=== PATIENT | female | born 1950 | race Native Hawaiian/Other Pacific Islander ===

== ENCOUNTER 2017-09-28 13:43 | Emergency (ER) | payer MEDICARE, OTHER ==
[~2017-09-28] VITALS: Ht 170.2 cm; Wt 79.5 kg
[~2017-09-28 13:43] MED LIST: DIPH25 PO; HYDR25TA PO; LISI-661 PO; METO25XL PO; NITR.3 SL; RANI150T7 PO
[2017-09-28] MEDS ORDERED: ASPIRIN 325 MG TABLET PO ONE (14:30)
[2017-09-28 14:54] LABS: BASOPHILS % (AUTO) 0.6 % (0.0-2.0); EOSINOPHILS % (AUTO) 1.5 % (1.0-6.0); HEMATOCRIT 38.7 % (36-46); HEMOGLOBIN 12.9 g/dL (12.0-16.0); LYMPHOCYTES # (AUTO) 2.2 K/uL (1.0-4.8); LYMPHOCYTES % (AUTO) 25.9 % (22.0-44.0); MEAN CORPUSCULAR HEMOGLOBIN 30.3 pg (26.0-34.0); MEAN CORPUSCULAR HGB CONC 33.4 G/dL (31.0-37.0); MEAN CORPUSCULAR VOLUME 91 fL (80-100); MONOCYTES # (AUTO) 0.5 K/uL (0.1-1.0); MONOCYTES % (AUTO) 6.3 % (2.0-9.0); NEUTROPHILS # (AUTO) 5.5 K/uL (1.8-7.7); NEUTROPHILS % (AUTO) 65.7 % (40.0-70.0); PLATELET COUNT (AUTO) 240 K/uL (150-450); RED BLOOD CELL COUNT(AUTO) 4.27 MIL/uL (4.00-5.20); RED CELL DISTRIBUTION WIDTH 14.1 % (11.5-14.5)
[2017-09-28 14:55] LABS: ANION GAP 8 mmol/L (8-16); CALCIUM, TOTAL 8.8 mg/dL (8.8-10.5); CARBON DIOXIDE 27 mmol/L (22-29); CHLORIDE 107 mmol/L (98-107); CREATININE 0.82 mg/dL (0.60-1.30); GLOMERULAR FILTR. RATE CALC > 60 mL/min (>60); GLUCOSE,RANDOM 98 mg/dL (70-110); POTASSIUM 3.6 mmol/L (3.5-5.1); SODIUM SERUM 142 mmol/L (136-145); UREA NITROGEN, BLOOD 15 mg/dL (7-18)
[2017-09-28 15:00] LABS: ALANINE AMINOTRANSFERASE 16 U/L (12-78); ALBUMIN 3.6 g/dL (3.4-5.0); ALKALINE PHOSPHATASE 71 U/L (46-116); ASPARTATE AMINOTRANSFERASE 12 U/L (15-37); BILIRUBIN,TOTAL 0.4 mg/dL (0.1-1.0); LIPASE 115 U/L (73-393); TOTAL PROTEIN, SERUM 7.4 g/dL (6.4-8.2)
[2017-09-28 16:34] VITALS: BP 142/82
== END 2017-09-28 17:14 | disposition home or self-care (01) ==
LOC: EMS 13:44
DX: K80.20 Calculus of gallbladder without cholecystitis without obstruction (principal); R07.89 Other chest pain; E78.00 Pure hypercholesterolemia, unspecified; I10 Essential (primary) hypertension; F17.210 Nicotine dependence, cigarettes, uncomplicated; E66.9 Obesity, unspecified; Z68.27 Body mass index [BMI] 27.0-27.9, adult
CPT/HCPCS: 76705; 93005; 99285

== ENCOUNTER 2022-03-21 17:56 | Emergency (ER) | payer MEDICARE, MEDICAID ==
[~2022-03-21] VITALS: Ht 170.2 cm; Wt 120.5 kg
[~2022-03-21 17:56] MED LIST changes: -DIPH25 PO; -HYDR25TA PO; -LISI-661 PO; +LISI-893 PO; -NITR.3 SL; +NITR0.3T12 SL
[2022-03-21] MEDS ORDERED: LEVO25TA9 PO (18:17)
[2022-03-21] MEDS ORDERED: METO-408 PO (18:17)
[2022-03-21] MEDS ORDERED: LOSA1TAB37 PO (18:17)
[2022-03-21] MEDS ORDERED: AMLO5TAB66 PO (18:17)
[2022-03-21] MEDS ORDERED: ONDANSETRON HCL 4 MG/2 ML VIAL IM ONE (18:30)
[2022-03-21] MEDS ORDERED: MORPHINE SULFATE 4 MG/ML SYRINGE IM ONE (18:30)
[2022-03-21 19:03] LABS: BASOPHILS % (AUTO) 0.6 % (0.0-2.0); EOSINOPHILS % (AUTO) 1.5 % (1.0-6.0); HEMATOCRIT 38.5 % (36-46); HEMOGLOBIN 13.1 g/dL (12.0-16.0); LYMPHOCYTES % (AUTO) 22.7 % (22.0-44.0); MEAN CORPUSCULAR HEMOGLOBIN 30.5 pg (26.0-34.0); MEAN CORPUSCULAR HGB CONC 33.9 G/dL (31.0-37.0); MEAN CORPUSCULAR VOLUME 90 fL (80-100); MONOCYTES # (AUTO) 0.7 K/uL (0.1-1.0); NEUTROPHILS # (AUTO) 5.9 K/uL (1.8-7.7); NEUTROPHILS % (AUTO) 67.2 % (40.0-70.0); PLATELET COUNT (AUTO) 255 K/uL (150-450); RED BLOOD CELL COUNT(AUTO) 4.28 MIL/uL (4.00-5.20); RED CELL DISTRIBUTION WIDTH 13.8 % (11.5-14.5)
[2022-03-21 19:21] LABS: CALCIUM, TOTAL 8.8 mg/dL (8.8-10.5); CREATININE 0.92 mg/dL (0.60-1.30); POTASSIUM 3.6 mmol/L (3.5-5.1)
[2022-03-21 19:30] LABS: ALBUMIN 3.5 g/dL (3.4-5.0); BILIRUBIN,TOTAL 0.3 mg/dL (0.1-1.0); TOTAL PROTEIN, SERUM 7.1 g/dL (6.4-8.2)
[2022-03-21] MEDS ORDERED: TraMADol HCL 50 MG TABLET PO ONE (21:45)
[2022-03-21 21:55] VITALS: BP 173/70
[2022-03-21] MEDS ORDERED: TRAM50TA4 PO (21:56)
== END 2022-03-21 21:53 | disposition home or self-care (01) ==
LOC: EMS 18:04
DX: S00.93XA Contusion of unspecified part of head, initial encounter (principal); S80.02XA Contusion of left knee, initial encounter; S80.01XA Contusion of right knee, initial encounter; S20.219A Contusion of unspecified front wall of thorax, initial encounter; S70.01XA Contusion of right hip, initial encounter; N63.0 Unspecified lump in unspecified breast; M19.90 Unspecified osteoarthritis, unspecified site; E78.00 Pure hypercholesterolemia, unspecified; I10 Essential (primary) hypertension; F17.210 Nicotine dependence, cigarettes, uncomplicated; R06.02 Shortness of breath; Z86.79 Personal history of other diseases of the circulatory system; Z98.890 Other specified postprocedural states; W01.10XA Fall on same level from slipping, tripping and stumbling with subsequent striking against unspecified object, initial encounter; Y93.89 Activity, other specified; Y92.89 Other specified places as the place of occurrence of the external cause; Y99.8 Other external cause status
CPT/HCPCS: 29505; 36415; 70450; 71250; 72125; 72128; 73502; 73562 ×2; 80053; 84484; 85025; 93005; 96372; 99285; J2270; J2405; 29530

== ENCOUNTER 2024-11-30 14:13 | Emergency (ER) | payer MEDICARE, MEDICAID ==
[~2024-11-30] VITALS: Ht 170.2 cm; Wt 104.5 kg
[~2024-11-30 14:13] MED LIST changes: +AMLO5TAB66 PO; +LEVO25TA9 PO; -LISI-893 PO; +LOSA1TAB37 PO; +METO-408 PO; -METO25XL PO; -RANI150T7 PO; +TRAM50TA5 PO
[2024-11-30] MEDS ORDERED: LOSA1TAB42 PO (14:18)
[2024-11-30] MEDS ORDERED: AMLO10TA55 PO (14:18)
[2024-11-30 14:19] VITALS: TEMP 98.5
[2024-11-30] MEDS: LIDOCAINE 1% 10 ML VIAL SQ ONE (16:22)
[2024-11-30 17:00] VITALS: BP 140/84; PULSE 60; RESP 16; O2SAT 97
[2024-11-30] MEDS ORDERED: DOXY-354 PO (17:02)
== END 2024-11-30 17:25 | disposition home or self-care (01) ==
LOC: EMS 14:13
DX: L02.411 Cutaneous abscess of right axilla (principal); E78.00 Pure hypercholesterolemia, unspecified; I10 Essential (primary) hypertension; M19.90 Unspecified osteoarthritis, unspecified site; F17.210 Nicotine dependence, cigarettes, uncomplicated; Z98.890 Other specified postprocedural states; Z90.11 Acquired absence of right breast and nipple; Z79.899 Other long term (current) drug therapy
CPT/HCPCS: 99284; 10061; J3490; 10060

== ENCOUNTER 2024-12-05 11:38 | Emergency (ER) | payer MEDICARE, MEDICAID ==
[~2024-12-05] VITALS: Ht 167.6 cm; Wt 109.1 kg
[~2024-12-05 11:38] MED LIST changes: +AMLO10TA55 PO; -AMLO5TAB66 PO; +DOXY-354 PO; -LOSA1TAB37 PO; +LOSA1TAB42 PO
[2024-12-05 11:44] VITALS: TEMP 98.2
[2024-12-05 12:45] VITALS: BP 140/84; PULSE 96; RESP 16; O2SAT 100
== END 2024-12-05 13:08 | disposition home or self-care (01) ==
LOC: EMS 11:38
DX: R22.2 Localized swelling, mass and lump, trunk (principal); E78.00 Pure hypercholesterolemia, unspecified; I10 Essential (primary) hypertension; I25.2 Old myocardial infarction; M19.90 Unspecified osteoarthritis, unspecified site; F17.210 Nicotine dependence, cigarettes, uncomplicated; Z98.890 Other specified postprocedural states; Z48.00 Encounter for change or removal of nonsurgical wound dressing; Z79.899 Other long term (current) drug therapy; Z85.3 Personal history of malignant neoplasm of breast; Z90.11 Acquired absence of right breast and nipple
CPT/HCPCS: 99281; Z7502

== ENCOUNTER 2025-01-23 23:06 | Inpatient (IN) | payer MEDICARE, MEDICAID ==
[~2025-01-23] VITALS: Ht 167.6 cm; Wt 108.0 kg
[2025-01-23] MEDS ORDERED: IOHEXOL 350 MG/ML 100 ML VIAL ONE (23:36)
[2025-01-23] MEDS ORDERED: SODIUM CHLORIDE 0.9% 100 ML ONE (23:36)
[2025-01-23 23:42] LABS: EOSINOPHILS % (AUTO) 3.2 % (1.0-6.0); HEMATOCRIT 37.4 % (36-46); HEMOGLOBIN 12.2 g/dL (12.0-16.0); LYMPHOCYTES # (AUTO) 2.3 K/uL (1.0-4.8); LYMPHOCYTES % (AUTO) 32.3 % (22.0-44.0); MEAN CORPUSCULAR HEMOGLOBIN 29.7 pg (26.0-34.0); MEAN CORPUSCULAR HGB CONC 32.6 G/dL (31.0-37.0); MEAN CORPUSCULAR VOLUME 91 fL (80-100); MONOCYTES # (AUTO) 0.7 K/uL (0.1-1.0); MONOCYTES % (AUTO) 9.5 % (2.0-9.0); NEUTROPHILS # (AUTO) 3.8 K/uL (1.8-7.7); PLATELET COUNT (AUTO) 236 K/uL (150-450); RED CELL DISTRIBUTION WIDTH 15.1 % (11.5-14.5)
[2025-01-23 23:48] LABS: ANION GAP 7 mmol/L (8-16); CALCIUM, TOTAL 8.6 mg/dL (8.8-10.5); CARBON DIOXIDE 30 mmol/L (22-29); CHLORIDE 105 mmol/L (98-107); CREATININE 0.78 mg/dL (0.60-1.30); GLOMERULAR FILTR. RATE CALC > 60 mL/min (>60); GLUCOSE,RANDOM 96 mg/dL (70-110); SODIUM SERUM 142 mmol/L (136-145); UREA NITROGEN, BLOOD 20 mg/dL (7-18)
[2025-01-23 23:53] LABS: ALANINE AMINOTRANSFERASE 18 U/L (12-78); ALBUMIN 3.4 g/dL (3.4-5.0); ALKALINE PHOSPHATASE 85 U/L (46-116); ASPARTATE AMINOTRANSFERASE 17 U/L (15-37); BILIRUBIN,TOTAL 0.2 mg/dL (0.1-1.0); TOTAL PROTEIN, SERUM 7.4 g/dL (6.4-8.2)
[2025-01-23 23:58] LABS: TROPONIN I-HIGH SENSITIVITY 40 ng/L (<51)
[2025-01-24] MEDS ORDERED: NiCARDipine HCL 25 MG in SODIUM CHLORIDE 0.9% 240 ML IV PRN
[2025-01-24] MEDS: HydrALAZINE HCL 20 MG/ML VIAL IVP ONE
[2025-01-24 00:12] LABS: AMMONIA 12 umol/L (11-32)
[2025-01-24] MEDS: NiCARDipine HCL 25 MG in SODIUM CHLORIDE 0.9% 240 ML IV PRN ×2 (00:12→00:21)
[2025-01-24 00:36] LABS: PROTHROMBIN TIME 10.1 SEC (9.4-11.6)
[2025-01-24] MEDS: LevETIRAcetam 1,000 MG in DEXTROSE 5%-WATER 100 ML IV ONE (00:46)
[2025-01-24 01:13] LABS: APPEARANCE,URINE CLEAR (CLEAR); BILIRUBIN,URINE NEGATIVE (NEGATIVE); COLOR,URINE COLORLESS (YELLOW); GLUCOSE, URINE (UA) NEGATIVE (NEGATIVE); KETONES,URINE NEGATIVE (NEGATIVE); LEUKOCYTE ESTERASE ,URINE SMALL (NEGATIVE); NITRATE,URINE NEGATIVE (NEGATIVE); OCCULT BLOOD,URINE NEGATIVE (NEGATIVE); PH,URINE 7.5 (5.0-8.0); PH,URINE DRUG SCREEN 7.5 (5.0-8.0); PROTEIN,URINE NEGATIVE (NEGATIVE); SPECIFIC GRAVITIY, URINE 1.027 (1.003-1.030); UROBILINOGEN,URINE <=1.0 mg/dL (<=1.0)
[2025-01-24 01:20] LABS: AMPHET/METH SCREEN,URINE NEGATIVE (NEGATIVE); BARBITURATE SCREEN, URINE NEGATIVE (NEGATIVE); BENZODIAZEPINES SCREEN,URINE NEGATIVE (NEGATIVE); CANNABINOID SCREEN,URINE NEGATIVE (NEGATIVE); COCAINE SCREEN,URINE NEGATIVE (NEGATIVE); METHADONE SCREEN, URINE NEGATIVE (NEGATIVE); OPIATE SCREEN,URINE NEGATIVE (NEGATIVE); PHENCYCLIDINE SCREEN,URINE NEGATIVE (NEGATIVE)
[2025-01-24 01:32] LABS: BACTERIA,URINE Few /HPF (None Seen); RBC,URINE 0-2 /HPF (0-2); SQUAMOUS EPITHELIAL CELL,UR Few /LPF (None Seen)
[2025-01-24 01:35] LABS: ALCOHOL, URINE DRUG SCREEN NEGATIVE (NEGATIVE)
[2025-01-24] MEDS: ACETAMINOPHEN 500 MG TABLET PO ONE (03:27)
[2025-01-24 03:52] LABS: TROPONIN I-HIGH SENSITIVITY 39 ng/L (<51)
[2025-01-24 05:00] VITALS: BP 124/60; PULSE 91; RESP 17; TEMP 97.8; O2SAT 97
[2025-01-24 08:00] VITALS: BP 159/73; PULSE 49; RESP 15; TEMP 98.6; O2SAT 99
[2025-01-24 08:12] LABS: TROPONIN I-HIGH SENSITIVITY 39 ng/L (<51)
[2025-01-24] MEDS: CefTRIAXone 1 GM/DEXTROSE 50 ML IV SCH (08:23)
[2025-01-24] MEDS: ETHYL ALCOHOL 62% ANTISEPTIC NASAL SANITIZER 0.6 ML AMPUL NASAL SCH (08:24)
[2025-01-24] MEDS: HydrALAZINE HCL 20 MG/ML VIAL IVP PRN (08:24)
[2025-01-24] MEDS ORDERED: GADOTERATE MEGLUMINE 10 MMOL/20 ML VIAL IVP ONE (10:37)
[2025-01-24] MEDS: LevETIRAcetam 250 MG TABLET PO SCH (10:57)
[2025-01-24] MEDS: AmLODIPine BESYLATE 5 MG TABLET PO SCH (10:57)
[2025-01-24] MEDS: ACETAMINOPHEN 325 MG TABLET PO PRN (10:58)
[2025-01-24 12:00] VITALS: BP 126/63; PULSE 57; RESP 12; TEMP 97.8; O2SAT 96
[2025-01-24 12:07] LABS: TROPONIN I-HIGH SENSITIVITY 33 ng/L (<51)
[2025-01-24] MEDS ORDERED: SODIUM CHLORIDE 0.9% 250 ML IV ONE (12:56)
[2025-01-24] MEDS: LORazepam 2 MG/ML VIAL IVP ONE (14:31)
[2025-01-24 16:00] VITALS: BP 129/54; PULSE 69; RESP 18; TEMP 97.8; O2SAT 96
[2025-01-24 20:00] VITALS: BP 108/55; PULSE 65; RESP 16; TEMP 98.8; O2SAT 95
[2025-01-24] MEDS: ATORVASTATIN CALCIUM 40 MG TABLET PO SCH (21:02)
[2025-01-25] VITALS: BP 115/65; PULSE 61; RESP 16; TEMP 98.6; O2SAT 95
[2025-01-25 04:00] VITALS: BP 151/73; PULSE 56; RESP 16; TEMP 98.6; O2SAT 94
[2025-01-25 05:51] LABS: BASOPHILS % (AUTO) 0.6 % (0.0-2.0); EOSINOPHILS % (AUTO) 2.5 % (1.0-6.0); HEMATOCRIT 36.8 % (36-46); LYMPHOCYTES # (AUTO) 1.8 K/uL (1.0-4.8); LYMPHOCYTES % (AUTO) 30.4 % (22.0-44.0); MEAN CORPUSCULAR HEMOGLOBIN 29.4 pg (26.0-34.0); MEAN CORPUSCULAR HGB CONC 32.7 G/dL (31.0-37.0); MEAN CORPUSCULAR VOLUME 90 fL (80-100); MONOCYTES # (AUTO) 0.5 K/uL (0.1-1.0); MONOCYTES % (AUTO) 8.7 % (2.0-9.0); NEUTROPHILS # (AUTO) 3.4 K/uL (1.8-7.7); NEUTROPHILS % (AUTO) 57.8 % (40.0-70.0); PLATELET COUNT (AUTO) 228 K/uL (150-450); RED BLOOD CELL COUNT(AUTO) 4.08 MIL/uL (4.00-5.20); RED CELL DISTRIBUTION WIDTH 15.2 % (11.5-14.5); WHITE BLOOD COUNT (AUTO) 5.9 K/uL (4.5-11.0)
[2025-01-25 06:08] LABS: ANION GAP 8 mmol/L (8-16); CALCIUM, TOTAL 8.7 mg/dL (8.8-10.5); CARBON DIOXIDE 27 mmol/L (22-29); CHLORIDE 106 mmol/L (98-107); CHOL/HDL RATIO 3.5 (3.9-5.7); CHOLESTEROL 147 mg/dL (131-200); CREATININE 0.73 mg/dL (0.60-1.30); GLOMERULAR FILTR. RATE CALC > 60 mL/min (>60); GLUCOSE,RANDOM 93 mg/dL (70-110); HDL CHOLESTEROL 42 mg/dL (40-60); LDL CHOL (CALC.) 91 mg/dL (0-130); POTASSIUM 3.9 mmol/L (3.5-5.1); SODIUM SERUM 141 mmol/L (136-145); TRIGLYCERIDES 70 mg/dL (15-150); UREA NITROGEN, BLOOD 12 mg/dL (7-18)
[2025-01-25 08:00] VITALS: PULSE 56; PULSE 62; RESP 13; TEMP 98.7; O2SAT 94
[2025-01-25 08:45] LABS: GLUCOMETER DEV NAME(LOC) ICUN.5; GLUCOSE,POINT OF CARE 95 MG/DL (70-110)
[2025-01-25 10:41] LABS: THYROID STIMULATING HORMONE 7.24 uIU/mL (0.36-3.74)
[2025-01-25 12:00] VITALS: BP 151/73; PULSE 74; RESP 14; TEMP 98.6; O2SAT 95
[2025-01-25 16:00] VITALS: BP 121/66; PULSE 66; RESP 15; TEMP 98.5; O2SAT 94
[2025-01-25 20:00] VITALS: BP 137/68; PULSE 63; PULSE 68; RESP 18; TEMP 98.6; O2SAT 94
[2025-01-26] VITALS: BP 145/72; PULSE 61; PULSE 62; RESP 20; TEMP 98.6; O2SAT 94
[2025-01-26 04:00] VITALS: BP 150/70; PULSE 55; PULSE 59; RESP 18; TEMP 98.6; O2SAT 94
[2025-01-26 08:00] VITALS: BP 154/77; PULSE 55; RESP 14; TEMP 98.2; O2SAT 94
[2025-01-26] MEDS: AmLODIPine BESYLATE 5 MG TABLET PO STA (10:23)
[2025-01-26 11:00] LABS: BASOPHILS % (AUTO) 0.9 % (0.0-2.0); EOSINOPHILS % (AUTO) 2.4 % (1.0-6.0); HEMATOCRIT 38.3 % (36-46); HEMOGLOBIN 12.4 g/dL (12.0-16.0); LYMPHOCYTES # (AUTO) 1.7 K/uL (1.0-4.8); LYMPHOCYTES % (AUTO) 29.8 % (22.0-44.0); MEAN CORPUSCULAR HEMOGLOBIN 29.3 pg (26.0-34.0); MEAN CORPUSCULAR HGB CONC 32.3 G/dL (31.0-37.0); MEAN CORPUSCULAR VOLUME 91 fL (80-100); MONOCYTES # (AUTO) 0.5 K/uL (0.1-1.0); MONOCYTES % (AUTO) 9.6 % (2.0-9.0); NEUTROPHILS # (AUTO) 3.2 K/uL (1.8-7.7); NEUTROPHILS % (AUTO) 57.3 % (40.0-70.0); PLATELET COUNT (AUTO) 251 K/uL (150-450); RED BLOOD CELL COUNT(AUTO) 4.23 MIL/uL (4.00-5.20); WHITE BLOOD COUNT (AUTO) 5.6 K/uL (4.5-11.0)
[2025-01-26 11:13] LABS: ANION GAP 6 mmol/L (8-16); CALCIUM, TOTAL 8.7 mg/dL (8.8-10.5); CARBON DIOXIDE 27 mmol/L (22-29); CHLORIDE 105 mmol/L (98-107); CREATININE 0.72 mg/dL (0.60-1.30); GLOMERULAR FILTR. RATE CALC > 60 mL/min (>60); GLUCOSE,RANDOM 85 mg/dL (70-110); POTASSIUM 3.9 mmol/L (3.5-5.1); SODIUM SERUM 138 mmol/L (136-145); UREA NITROGEN, BLOOD 15 mg/dL (7-18)
[2025-01-26 11:16] LABS: TROPONIN I-HIGH SENSITIVITY 29 ng/L (<51)
[2025-01-26 12:00] VITALS: BP 169/80; PULSE 72; RESP 15; TEMP 98.6; O2SAT 94
[2025-01-26] MEDS ORDERED: IOHEXOL 350 MG/ML 100 ML VIAL ONE (15:32)
[2025-01-26] MEDS ORDERED: SODIUM CHLORIDE 0.9% 100 ML ONE (15:32)
[2025-01-26] MEDS ORDERED: 0.9% SODIUM CHLORIDE 10 ML SYRINGE IVP ONE (15:32)
[2025-01-26 15:51] LABS: TROPONIN I-HIGH SENSITIVITY 32 ng/L (<51)
[2025-01-26 16:00] VITALS: PULSE 58; PULSE 60; TEMP 98.7
[2025-01-26 20:00] VITALS: BP 138/78; PULSE 70; RESP 16; O2SAT 95
[2025-01-26] MEDS: LOSARTAN POTASSIUM 50 MG TABLET PO SCH (21:09)
[2025-01-27] VITALS: BP 119/43; PULSE 72; RESP 16; TEMP 98.2; O2SAT 96
[2025-01-27 04:00] VITALS: BP 114/51; PULSE 68; RESP 16; TEMP 97.9; O2SAT 93
[2025-01-27 06:06] LABS: BASOPHILS % (AUTO) 0.8 % (0.0-2.0); EOSINOPHILS % (AUTO) 2.6 % (1.0-6.0); HEMOGLOBIN 12.2 g/dL (12.0-16.0); LYMPHOCYTES # (AUTO) 1.7 K/uL (1.0-4.8); LYMPHOCYTES % (AUTO) 36.9 % (22.0-44.0); MEAN CORPUSCULAR HEMOGLOBIN 29.8 pg (26.0-34.0); MEAN CORPUSCULAR HGB CONC 32.9 G/dL (31.0-37.0); MEAN CORPUSCULAR VOLUME 91 fL (80-100); MONOCYTES # (AUTO) 0.4 K/uL (0.1-1.0); MONOCYTES % (AUTO) 9.7 % (2.0-9.0); NEUTROPHILS # (AUTO) 2.3 K/uL (1.8-7.7); PLATELET COUNT (AUTO) 240 K/uL (150-450); RED BLOOD CELL COUNT(AUTO) 4.08 MIL/uL (4.00-5.20); WHITE BLOOD COUNT (AUTO) 4.6 K/uL (4.5-11.0)
[2025-01-27 07:30] LABS: ANION GAP 8 mmol/L (8-16); CALCIUM, TOTAL 8.7 mg/dL (8.8-10.5); CARBON DIOXIDE 26 mmol/L (22-29); CHLORIDE 106 mmol/L (98-107); CREATININE 0.75 mg/dL (0.60-1.30); GLOMERULAR FILTR. RATE CALC > 60 mL/min (>60); GLUCOSE,RANDOM 84 mg/dL (70-110); POTASSIUM 3.7 mmol/L (3.5-5.1); SODIUM SERUM 140 mmol/L (136-145); UREA NITROGEN, BLOOD 18 mg/dL (7-18)
[2025-01-27 08:00] VITALS: BP 136/78; PULSE 58; RESP 16; O2SAT 98
[2025-01-27] MEDS ORDERED: AmLODIPine BESYLATE 10 MG TABLET PO SCH (09:00)
[2025-01-27] MEDS: AmLODIPine BESYLATE 10 MG TABLET PO SCH (09:08)
[2025-01-27 12:00] VITALS: BP 118/71; PULSE 63; RESP 16; TEMP 97.8; O2SAT 93
[2025-01-27] MEDS ORDERED: ATOR40TA71 PO (14:35)
[2025-01-27] MEDS ORDERED: LOSA-382 PO (14:35)
[2025-01-27] MEDS ORDERED: LEVE250T81 PO (14:35)
== END 2025-01-27 15:40 | disposition home or self-care (01) | DRG 65 ==
LOC: EMS 23:06 → EDH 01-24 00:44 → ICU 01-24 04:50
PROVIDERS: ADMIT Internal Medicine; ATTEND Internal Medicine
PROC: 05HA33Z Insertion of Infusion Device into Left Brachial Vein, Percutaneous Approach (ICD-10-PCS; principal; 2025-01-26)
DX: I62.9 Nontraumatic intracranial hemorrhage, unspecified (principal); I16.1 Hypertensive emergency; I71.9 Aortic aneurysm of unspecified site, without rupture; E03.9 Hypothyroidism, unspecified; E66.01 Morbid (severe) obesity due to excess calories; Z68.38 Body mass index [BMI] 38.0-38.9, adult; E78.00 Pure hypercholesterolemia, unspecified; I10 Essential (primary) hypertension; F17.200 Nicotine dependence, unspecified, uncomplicated; R07.89 Other chest pain; E78.5 Hyperlipidemia, unspecified; Z85.3 Personal history of malignant neoplasm of breast; I25.2 Old myocardial infarction; Z90.11 Acquired absence of right breast and nipple
CPT/HCPCS: 36245; 36569; 70450; 70496; 70498; 70553; 71045; 74174; 74175; 76937; 80048; 80053; 80061; 80307; 81001; 82140; 82948; 82962; 83735; 83880; 84443; 84484; 85025; 85610; 85730; 86850; 86900; 86901; 87040; 87081; 87086; 92526; 92610; 93005; 93306; 97116; 97163; 97166; 97530; 97535; 99285; J0360; J0696; J0712; J2060; J3490; J7050; J7060; 36415-L1; 36415-TC

== ENCOUNTER 2025-11-28 14:13 | Inpatient (IN) | payer MEDICARE, MEDICAID ==
[~2025-11-28] VITALS: Ht 170.2 cm; Wt 114.4 kg
[~2025-11-28 14:13] MED LIST changes: +ATOR40TA71 PO; -DOXY-354 PO; +LEVE250T81 PO; +LOSA-382 PO; -LOSA1TAB42 PO
[2025-11-28 15:03] LABS: PLATELET COUNT (AUTO) 175 K/uL (150-450); RED BLOOD CELL COUNT(AUTO) 4.11 MIL/uL (4.00-5.20); RED CELL DISTRIBUTION WIDTH 14.8 % (11.5-14.5); WHITE BLOOD COUNT (AUTO) 10.4 K/uL (4.5-11.0)
[2025-11-28 15:05] LABS: CALCIUM, TOTAL 8.8 mg/dL (8.8-10.5); CREATININE 0.74 mg/dL (0.60-1.30); GLOMERULAR FILTR. RATE CALC > 60 mL/min (>60); GLUCOSE,RANDOM 90 mg/dL (70-110); SODIUM SERUM 139 mmol/L (136-145); UREA NITROGEN, BLOOD 13 mg/dL (7-18)
[2025-11-28 15:13] LABS: TROPONIN I-HIGH SENSITIVITY 35 ng/L (<51)
[2025-11-28 15:13] LABS: COVID AG,FIA SOURCE NASAL SWAB
[2025-11-28] MEDS ORDERED: NITR-104 PO (15:28)
[2025-11-28] MEDS ORDERED: LETR2.5 PO (15:28)
[2025-11-28 15:34] LABS: INFLUENZA TYPE A NEGATIVE FOR TYPE A (NEGATIVE); INFLUENZA TYPE B NEGATIVE FOR TYPE B (NEGATIVE); SARS-COV2 (COVID) ANTIGEN,FIA Negative (Negative)
[2025-11-28 16:42] LABS: APPEARANCE,URINE CLEAR (CLEAR); GLUCOSE, URINE (UA) NEGATIVE (NEGATIVE); LEUKOCYTE ESTERASE ,URINE SMALL (NEGATIVE); NITRATE,URINE NEGATIVE (NEGATIVE); OCCULT BLOOD,URINE NEGATIVE (NEGATIVE); SPECIFIC GRAVITIY, URINE 1.010 (1.003-1.030)
[2025-11-28 18:47] VITALS: BP 124/76; PULSE 101; RESP 18; TEMP 98.2; O2SAT 97
[2025-11-28 18:59] VITALS: BP 147/78; PULSE 80; RESP 19; TEMP 98.2; O2SAT 93
[2025-11-28] MEDS ORDERED: ONDANSETRON HCL 4 MG/2 ML VIAL IVP PRN (21:45)
[2025-11-28 22:25] LABS: TROPONIN I-HIGH SENSITIVITY 32 ng/L (<51)
[2025-11-28] MEDS: ACETAMINOPHEN 325 MG TABLET PO PRN (23:54)
[2025-11-28] MEDS: HEPARIN SODIUM,PORCINE 5,000 UNITS/ML VIAL SQ SCH (23:55)
[2025-11-29 05:36] VITALS: BP 131/68; PULSE 64; RESP 18; TEMP 97.7; O2SAT 98
[2025-11-29 06:44] LABS: PLATELET COUNT (AUTO) 208 K/uL (150-450); RED BLOOD CELL COUNT(AUTO) 4.03 MIL/uL (4.00-5.20); RED CELL DISTRIBUTION WIDTH 14.7 % (11.5-14.5); WHITE BLOOD COUNT (AUTO) 5.9 K/uL (4.5-11.0)
[2025-11-29 06:59] LABS: CALCIUM, TOTAL 8.7 mg/dL (8.8-10.5); CREATININE 0.66 mg/dL (0.60-1.30); GLOMERULAR FILTR. RATE CALC > 60 mL/min (>60); GLUCOSE,RANDOM 93 mg/dL (70-110); SODIUM SERUM 141 mmol/L (136-145); UREA NITROGEN, BLOOD 17 mg/dL (7-18)
[2025-11-29 07:10] LABS: TROPONIN I-HIGH SENSITIVITY 28 ng/L (<51)
[2025-11-29 07:16] VITALS: BP 131/60; PULSE 64; RESP 18; TEMP 97.9; O2SAT 95
[2025-11-29] MEDS: LETROZOLE 2.5 MG TABLET PO SCH (08:57)
[2025-11-29] MEDS: METOPROLOL SUCCINATE 25 MG ER TABLET PO SCH (08:57)
[2025-11-29] MEDS: DOCUSATE SODIUM 100 MG CAPSULE PO SCH (08:59)
[2025-11-29 11:23] VITALS: BP 125/62; PULSE 61; RESP 18; TEMP 98.8; O2SAT 94
[2025-11-29] MEDS: ASPIRIN 81 MG CHEWABLE TABLET PO ONE (13:15)
[2025-11-29] MEDS ORDERED: IOHEXOL 350 MG/ML 100 ML VIAL ONE (13:39)
[2025-11-29 15:51] VITALS: BP 134/67; PULSE 60; RESP 18; TEMP 98.5; O2SAT 95
[2025-11-30] MEDS ORDERED: ASPIRIN 81 MG CHEWABLE TABLET PO SCH (08:00)
== END 2025-11-29 19:30 | disposition left against medical advice (07) | DRG 303 ==
LOC: EMS 14:13 → EDH 17:16 → 5S 18:42
PROVIDERS: ADMIT Internal Medicine; ATTEND Internal Medicine
DX: I25.10 Atherosclerotic heart disease of native coronary artery without angina pectoris (principal); I69.354 Hemiplegia and hemiparesis following cerebral infarction affecting left non-dominant side; C50.919 Malignant neoplasm of unspecified site of unspecified female breast; E66.9 Obesity, unspecified; I10 Essential (primary) hypertension; Z53.29 Procedure and treatment not carried out because of patient's decision for other reasons; R79.89 Other specified abnormal findings of blood chemistry; E87.6 Hypokalemia; Z79.899 Other long term (current) drug therapy; Z20.822 Contact with and (suspected) exposure to COVID-19; E78.00 Pure hypercholesterolemia, unspecified; I25.2 Old myocardial infarction; Z85.3 Personal history of malignant neoplasm of breast; Z85.89 Personal history of malignant neoplasm of other organs and systems; Z87.891 Personal history of nicotine dependence; Z91.199 Patient's noncompliance with other medical treatment and regimen due to unspecified reason; Z68.39 Body mass index [BMI] 39.0-39.9, adult
CPT/HCPCS: 71045; 71275; 80048; 81001; 83735; 83880; 84484; 85025; 85379; 85610; 85730; 87804; 93005; 93306; 99285; J1644; 36415-L1; 36415-TC